=== PATIENT | male | born 1995 | race Caucasian/White ===

== ENCOUNTER 2024-01-16 13:49 | Emergency (ER) | payer MEDICAID ==
[~2024-01-16] VITALS: Ht 172.7 cm; Wt 70.0 kg
[2024-01-16 13:56] VITALS: TEMP 98.1
[2024-01-16] MEDS: HYDROCODONE/ACETAMINOPHEN 5-325 MG TABLET PO ONE (17:41)
[2024-01-16 17:52] VITALS: BP 132/82; PULSE 62; RESP 18
[2024-01-16] MEDS ORDERED: IBUP-1492 PO (17:54)
[2024-01-16] MEDS ORDERED: HYDR-4062 PO (17:54)
== END 2024-01-16 18:44 | disposition home or self-care (01) ==
LOC: EMS 13:51
DX: S52.502A Unspecified fracture of the lower end of left radius, initial encounter for closed fracture (principal); S52.612A Displaced fracture of left ulna styloid process, initial encounter for closed fracture; W19.XXXA Unspecified fall, initial encounter; Y93.89 Activity, other specified; Y92.89 Other specified places as the place of occurrence of the external cause; Y99.8 Other external cause status
CPT/HCPCS: 99284; 73090-TC; 73110-TC; 73130-TC; Z7502; Z7610